=== PATIENT | female | born 1950 ===

== ENCOUNTER 2019-01-21 06:11 | Day surgery (SDC) | payer BC, OTHER ==
[~2019-01-21 06:11] MED LIST: ANCEF/STERILE WATER 2 GM/20 ML 2 GM/20 ML SYRINGE IV NR; MARCAINE 0.5% INFILTRATI ONE; NACL 0.9% 1000 ML 1,000 ML IV SCH
[2019-01-21] MEDS ORDERED: HEPARIN 10,000 UNITS/10 ML ONE (08:38)
[2019-01-21] MEDS ORDERED: MARCAINE 0.5% INFILTRATI ONE ×3 (08:38→11:03)
[2019-01-21] MEDS ORDERED: XYLOCAINE 1%/ EPI 1:100,000 INFILTRATI ONE ×3 (08:38→09:38)
[2019-01-21] MEDS ORDERED: NACL 0.9% 250ML 250 ML ONE (08:39)
[2019-01-21] MEDS ORDERED: SODIUM BICARBONATE ONE (08:39)
[2019-01-21] MEDS ORDERED: NACL 0.9% 500 ML 500 ML ONE (08:43)
[2019-01-21] MEDS ORDERED: SUBLIMAZE IV PRN (08:47)
[2019-01-21] MEDS ORDERED: XYLOCAINE MPF 2% ONE (09:04)
[2019-01-21] MEDS ORDERED: SUBLIMAZE ONE (09:04)
[2019-01-21] MEDS ORDERED: DIPRIVAN 10 MG/ML IV ONE (09:04)
--- NOTE | 2019-01-21 09:05 | Anesthesia Day of Surgery ---
Anesthesia Day of Surgery - Day of Surgery Patient Examined: Yes Patient H&P Reviewed: Yes Patient is NPO: Yes Beta Blockers: No Cardiac Clearance: No Pulmonary Clearance: No Swapnil's Test: N/A
[2019-01-21] MEDS ORDERED: ROBINUL ONE (09:06)
--- NOTE | 2019-01-21 09:09 | Anesthesia Consultation ---
Anesthesia Consult and Med Hx - Pulmonary Exam CTA: Yes - Cardiac Exam Cardiac Exam: RRR - Pre-Operative Health Status ASA Pre-Surgery Classification: ASA3 Proposed Anesthetic Plan: General - Pulmonary Hx Smoking: No Hx Asthma: No SOB: No COPD: No Hx Sleep Apnea: No - Cardiovascular System Hx Hypertension: Yes Hx Coronary Artery Disease: No - Central Nervous System Hx Psychiatric Problems: No - Gastrointestinal Hx Gastroesophageal Reflux Disease: No - Endocrine Hx Renal Disease: Yes Hx End Stage Renal Disease: Yes (on dialysis M/F ) Hx Hypothyroidism: No (levothyroxine ) Hx Hyperthyroidism: No - Hematic Hx Anemia: Yes (Past hx) - Other Systems Hx Alcohol Use: No Hx Substance Use: No Hx Cancer: No - Additional Comments Anesthesia Medical History Comments: R. AV fistula under general; patient NPO status confirmed and no further anticipated issues with anesthesia.
[2019-01-21] MEDS ORDERED: XYLOCAINE 1% 20 mL INFILTRATI ONE (09:38)
[2019-01-21] MEDS ORDERED: HEPARIN 10,000 UNITS/10 ML IV ONE (09:38)
[2019-01-21] MEDS ORDERED: NACL 0.9% 500 ML IRRIGATION ONE (09:38)
[2019-01-21] MEDS ORDERED: NACL 0.9% IR ONE (09:38)
--- NOTE | 2019-01-21 11:47 | Operative Report ---
Operative Report Operative Report: Date of procedure: 01/21/2019 Pre-operative diagnosis: End-stage renal disease on hemodialysis Post-operative diagnosis: Same Procedure name(s): Creation of left brachial artery to axillary vein hemodialysis graft using 6 millimeter Artegraft Surgeon: Vance Caballero MD Print Production Associate: Colby Mckeon PA-C Anesthesia: Gen. LMA EBL: Minimal Specimen(s): None Complications: None Findings: Small brachial artery and axillary vein with diminished radial pulse good thrill and bruit in the graft Procedure: Patient in the supine position with the left arm extended the entire extremity is prepped and draped using standard sterile technique. Through anesthetized skin longitudinal incision was made over the brachial pulse just above the antecubital fossa and carried down through the subcutaneous tissue. The brachial artery was identified and mobilized for several centimeters and encircled using vessel loops. Attention was then turned to the axilla where again a longitudinal incision was made through anesthetized skin and carried down through subcutaneous tissue until the axillary vein was identified and mobilized for several centimeters. Attention was then again and turned to the brachial incision with artery was occluded and a longitudinal arteriotomy was then made. The 6 mm Artegraft graft was brought into the surgical field, and an end to side anastomosis was then created using 6-0 Prolene suture and running technique. Because of the small size of the brachial artery the arteriotomy was Rather small and the larger graft was cuffed into place. Prior to completion of the suture line antegrade and retrograde flushing was performed. Suture line was then completed, the graft controlled and flow was released back to the hand. A curved Lyssa-Wick tunneling device was used to create a curvilinear subcutaneous tunnel from the axillary incision into the brachial incision. The graft was then attached and withdrawn in a nonrotational fashion. Axillary vein was then controlled and opened longitudinally and the graft was then trimmed to an appropriate length and configuration and sutured end to side fashion with 6-0 Prolene suture 4 needle technique. The graft was then released evacuating air. Flow was then released retrograde down the brachial vein and subsequently released to the shoulder. Hemostasis was excellent. Graft developed a very nice thrill and bruit. There was a slightly weak radial pulse and palmar arch pulse dopplerable at the completion of the procedure. Hemostasis was adequate. The incisions were then blocked with Marcaine 0.5% plain and closed in layers using 3-0 Vicryl subcutaneous for Monocryl subcuticular. Skin was reapproximated with octylseal. Patient was then extubated and returned to the recovery room in stable condition having tolerated the procedure well. Sponge and needle counts were correct.
--- NOTE | 2019-01-21 11:54 | Short Stay Summary ---
Short Stay Documentation Date of service: 01/21/19 Narrative H&P: Patient admitted to the operative suite for outpatient creation of left arm hemodialysis access graft - History Principal diagnosis: end-stage renal disease on hemodialysis H&P: obtained from office - Allergies and Medications Current Medications: Allergies No Known Allergies Allergy (Unverified 01/19/19 14:51) Home Medications Medication Instructions Recorded Confirmed Last Taken Type Carvedilol 1 tab PO QDAY 01/21/19 01/21/19 01/21/19 04:00 History Ergocalciferol [Vitamin D2] 1 tab PO QWEEK 01/21/19 01/21/19 01/20/19 History Ferrous Sulfate [Iron 325 MG] 325 mg PO QDAY 01/21/19 01/21/19 01/20/19 History Levothyroxine [Synthroid] 50 mcg PO QAM 01/21/19 01/21/19 01/21/19 04:00 History Losartan [Cozaar] 50 mg PO QDAY 01/21/19 01/21/19 01/20/19 History Sevelamer HCl [Renagel] 800 mg PO TIDWM 01/21/19 01/21/19 01/20/19 History amLODIPine [Norvasc] 10 mg PO DAILY 01/21/19 01/21/19 01/21/19 04:00 History Active Medications Fentanyl (Sublimaze) 50 mcg IV Q5MIN PRN PRN Reason: Pain , Severe (7-10) Stop: 01/21/19 20:00 Cefazolin Sodium (Ancef/Sterile Water 2 Gm/20 Ml) 2 gm in 20 mls @ 80 mls/hr IV PREOP NR; Protocol Stop: 01/21/19 23:59 Sodium Chloride (Nacl 0.9% 1000 Ml) 1,000 mls @ 42 mls/hr IV DIRECT FABIEN Last Admin: 01/21/19 08:20 Dose: 42 mls/hr Documented by: - Brief post op/procedure progress note Date of procedure: 01/21/19 Procedure: Date of procedure: 01/21/2019 Pre-operative diagnosis: End-stage renal disease on hemodialysis Post-operative diagnosis: Same Procedure name(s): Creation of left brachial artery to axillary vein hemodialysis graft using 6 millimeter Artegraft Surgeon: Vance Caballero MD Fiscal Services Director: Colby Mckeon PA-C Anesthesia: Gen. LMA EBL: Minimal Specimen(s): None Complications: None Findings: Small brachial artery and axillary vein with diminished radial pulse good thrill and bruit in the graft Procedure: Patient in the supine position with the left arm extended the entire extremity is prepped and draped using standard sterile technique. Through anesthetized skin longitudinal incision was made over the brachial pulse just above the antecubital fossa and carried down through the subcutaneous tissue. The brachial artery was identified and mobilized for several centimeters and encircled using vessel loops. Attention was then turned to the axilla where again a longitudinal incision was made through anesthetized skin and carried down through subcutaneous tissue until the axillary vein was identified and mobilized for several centimeters. Attention was then again and turned to the brachial incision with artery was occluded and a longitudinal arteriotomy was then made. The 6 mm Artegraft graft was brought into the surgical field, and an end to side anastomosis was then created using 6-0 Prolene suture and running technique. Because of the small size of the brachial artery the arteriotomy was Rather small and the larger graft was cuffed into place. Prior to completion of the suture line antegrade and retrograde flushing was performed. Suture line was then completed, the graft controlled and flow was released back to the hand. A curved Lyssa-Wick tunneling device was used to create a curvilinear subcutaneous tunnel from the axillary incision into the brachial incision. The graft was then attached and withdrawn in a nonrotational fashion. Axillary vein was then controlled and opened longitudinally and the graft was then trimmed to an appropriate length and configuration and sutured end to side fashion with 6- 0 Prolene suture 4 needle technique. The graft was then released evacuating air. Flow was then released retrograde down the brachial vein and subsequently released to the shoulder. Hemostasis was excellent. Graft developed a very nice thrill and bruit. There was a slightly weak radial pulse and palmar arch pulse dopplerable at the completion of the procedure. Hemostasis was adequate. The incisions were then blocked with Marcaine 0.5% plain and closed in layers using 3-0 Vicryl subcutaneous for Monocryl subcuticular. Skin was reapproximated with octylseal. Patient was then extubated and returned to the recovery room in stable condition having tolerated the procedure well. Sponge and needle counts were correct. Anesthesia: GETA Findings: Small brachial artery and axillary vein. Adequate function and A-V graft. Slightly weakened radial pulse but adequate - Hospital course Hospital course: Unremarkable - Disposition Condition at discharge: Stable Disposition: DC-01 TO HOME OR SELFCARE - Discharge Diagnoses (1) End-stage renal disease on hemodialysis Status: Chronic Short Stay Discharge Plan Activity: advance as tolerated Weight Bearing Status: Full Weight Bearing Diet: renal Wound: keep clean and dry Special Instructions: no heavy lifting Follow up with: RAISA VOGT MD [Primary Care Provider] - 7 Days Prescriptions: HYDROcodone/APAP 5-325 [[place] 5/325] 1 each PO Q6HR PRN #20 tablet PRN Reason: Pain, Moderate (4-6)
[2019-01-21 12:42] VITALS: BP 132/66
--- NOTE | 2019-01-21 14:40 | Post Anesthesia Evaluation ---
- Post Anesthesia Evaluation Patient Participated: Yes Airway Patent: Yes Stable Respiratory Function: Yes Nausea/Vomiting: No Temp > 96.8F: Yes Pain Manageable: Yes Adequeate Hydration: Yes Anesthesia Complications: No
== END 2019-01-21 13:25 | disposition home or self-care (01) ==
LOC: OR 06:11
PROVIDERS: ATTEND Surgery Vascular Surgery
DX: I12.0 Hypertensive chronic kidney disease with stage 5 chronic kidney disease or end stage renal disease (principal); N18.6 End stage renal disease; F41.9 Anxiety disorder, unspecified; E03.9 Hypothyroidism, unspecified; Z79.899 Other long term (current) drug therapy; Z99.2 Dependence on renal dialysis; Z98.41 Cataract extraction status, right eye; Z98.42 Cataract extraction status, left eye; Z90.49 Acquired absence of other specified parts of digestive tract; Z98.890 Other specified postprocedural states; Z86.2 Personal history of diseases of the blood and blood-forming organs and certain disorders involving the immune mechanism
CPT/HCPCS: 36830; 82803; C1768; J0690; J1644; J2704; J3010; J7030; J7040; J7050